=== PATIENT | female | born 1985 ===

== ENCOUNTER 2018-04-06 20:27 | Emergency (ER) | payer OTHER ==
[2018-04-06 20:46] VITALS: BP 125/82; PULSE 70; RESP 20; TEMP 98.4; O2SAT 100
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
== END 2018-04-06 22:09 | disposition home or self-care (01) ==
LOC: C.ER 20:27
DX: S16.1XXA Strain of muscle, fascia and tendon at neck level, initial encounter (principal); S39.012A Strain of muscle, fascia and tendon of lower back, initial encounter; V53.5XXA Driver of pick-up truck or van injured in collision with car, pick-up truck or van in traffic accident, initial encounter
CPT/HCPCS: 96372; 99283; J1885